=== PATIENT | female | born 1990 | race Caucasian/White ===

== ENCOUNTER 2016-08-01 20:05 | Outpatient (CLI) | payer SELFPAY ==
[~2016-08-01] VITALS: Ht 157.5 cm; Wt 64.0 kg
[2016-08-01 20:20] LABS: DAU SCREEN DISCLAIMER
[2016-08-01 20:28] LABS: PATH.CAST-FLAG NOT PRESENT; SPERM-FLAG NOT PRESENT; SRC-FLAG NOT PRESENT; XTAL-FLAG NOT PRESENT; YLC-FLAG NOT PRESENT
== END 2016-08-01 20:55 | disposition home or self-care (01) ==
LOC: LDOP 20:05
PROVIDERS: ATTEND Obstetrics & Gynecology
DX: O26.892 Other specified pregnancy related conditions, second trimester (principal); M54.9 Dorsalgia, unspecified; Z3A.24 24 weeks gestation of pregnancy
CPT/HCPCS: 59025; 80307; 81001; 87086; 99201; G0463